=== PATIENT | female | born 1995 | race Caucasian/White ===

== ENCOUNTER → 2017-09-30 | Outpatient (CLI) | payer BC | LOC: M WUC 15:54 | DX: M54.2 Cervicalgia (principal) | CPT/HCPCS: 72052 ==

== ENCOUNTER → 2017-11-07 | Outpatient (CLI) | payer BC | LOC: M RAD 09:43 | DX: G43.909 Migraine, unspecified, not intractable, without status migrainosus (principal) | CPT/HCPCS: 70551 ==

== ENCOUNTER → 2018-08-20 | Outpatient (CLI) | payer BC ==
[2018-08-20 16:05] LABS: BASO # 0.1 10^3/uL (0.0-0.2); BASO % 0.6 % (0.0-1.0); EOS # 0.3 10^3/uL (0.0-0.50); EOS % 3.2 % (0.0-3.0); HEMATOCRIT 40.8 % (36.0-47.0); HEMOGLOBIN 13.3 g/dl (12.0-15.5); LYMPH # 1.9 10^3/uL (1.5-6.5); MEAN CORPUSCULAR HEMOGLOBIN 26.9 pg (27.0-33.0); MEAN CORPUSCULAR HGB CONC 32.6 g/dl (32.0-36.5); MEAN CORPUSCULAR VOLUME 82.6 fl (80.0-96.0); MONO # 0.5 10^3/uL (0.0-0.8); MONO % 5.3 % (0.0-5.0); NEUTROPHILS % 68.7 % (36.0-66.0); PLATELET COUNT, AUTOMATED 330 10^3/uL (150-450); RED BLOOD COUNT 4.94 10^6/uL (4.00-5.40); WHITE BLOOD COUNT 8.7 10^3/uL (4.0-10.0)
[2018-08-20 16:14] LABS: HEMATOCRIT 40.8 % (36.0-47.0)
[2018-08-20 16:26] LABS: ALBUMIN 4.1 GM/DL (3.2-5.2); ALT/SGPT 28 U/L (12-78); BILIRUBIN,TOTAL 0.4 MG/DL (0.2-1.0); BLOOD UREA NITROGEN 10 MG/DL (7-18); CALCIUM LEVEL 9.6 MG/DL (8.5-10.1); CARBON DIOXIDE LEVEL 23 MEQ/L (21-32); CHLORIDE LEVEL 109 MEQ/L (98-107); CREATININE FOR GFR 0.94 MG/DL (0.55-1.30); FREE T3 2.8 PG/ML (2.2-4.0); FREE T4 0.88 NG/DL (0.76-1.46); GLOMERULAR FILTRATION RATE > 60.0 (>60); GLUCOSE, FASTING 120 MG/DL (70-100); IRON (FE) 76 UG/DL (50-170); PERCENT SATURATION 21.1 % (13.2-45.0); POTASSIUM SERUM 3.9 MEQ/L (3.5-5.1); SODIUM LEVEL 139 MEQ/L (136-145); TOTAL IRON BINDING CAPACITY 360 UG/DL (250-450); TOTAL PROTEIN 7.2 GM/DL (6.4-8.2)
[2018-08-20 17:59] LABS: TOTAL 25(OH) VITAMIN D 19.2 NG/ML (30.0-100.0)
[2018-08-21 09:04] LABS: THYROID PEROXIDASE ANTIBODY 40.7 U/ML (<60.0)
[2018-08-21 09:17] LABS: THYROGLOBULIN ANTIBODY < 15.0 U/ML (<60.0)
[2018-08-27 00:07] LABS: ALUMINUM LEVEL 7 ug/L (0-9); ANTINUCLEAR ANTIBODIES DIRECT Negative (Negative); ARSENIC 3 ug/L (2-23); EBV VIRAL CAPSID AG IgM <36.0 U/mL (0.0-35.9); GLUTATHIONE QT 178 ug/mL (176-323); LEAD BLOOD ADULT <1 ug/dL (0-4); Lyme Disease IgG/IgM Antibodie <0.91 ISR (0.00-0.90); Lyme Disease IgM Ab Quantitati <0.80 index (0.00-0.79); MERCURY LEVEL None Detected ug/L (0.0-14.9); T3 REVERSE 21.9 ng/dL (9.2-24.1)
== END ==
LOC: M WUC 13:34
PROVIDERS: ATTEND Nurse Practitioner Pediatrics
DX: F32.0 Major depressive disorder, single episode, mild (principal)

== ENCOUNTER → 2018-11-12 | Outpatient (CLI) | payer BC ==
[2018-11-12 18:20] LABS: IMMUNOGLOBULIN E 47.8 IU/ML (<100); IMMUNOGLOBULIN M 22.9 MG/DL (40-230)
[2018-11-18 08:06] LABS: ALPHA 1 ANTITRYPSIN 194 mg/dL (90-200); D001-IgE D pteronyssinus 0.46 kU/L (Class I); E001-IgE Cat Epith/Dander 9.35 kU/L (Class IV); F002-IgE Milk 0.12 kU/L (Class 0/I); F004-IgE Wheat < 0.10 kU/L (Class 0); F013-IgE Peanut 0.13 kU/L (Class 0/I); F014-IgE Soybean < 0.10 kU/L (Class 0); F026-IgE Pork < 0.10 kU/L (Class 0); F027-IgE Beef < 0.10 kU/L (Class 0); F245-IgE Egg, Whole < 0.10 kU/L (Class 0); FX02-IgE Food Mix (Sea Foods) Negative (.); G002-IgE Bermuda Grass < 0.10 kU/L (Class 0); G008-IgE Kentucky Bluegrass 0.91 kU/L (Class II); M001-IgE Penicillium chrysogen < 0.10 kU/L (Class 0); M002 IgE Cladosporium herbaru < 0.10 kU/L (Class 0); M003 IgE Aspergillus fumigatu < 0.10 kU/L (Class 0); M006-IgE Alternaria alternata < 0.10 kU/L (Class 0); T001-IgE Maple/Box Elder 0.17 kU/L (Class 0/I); T006-IgE Cedar, Mountain 0.64 kU/L (Class II); T007-IgE Oak, White 0.55 kU/L (Class I); T008-IgE Elm, American 0.67 kU/L (Class II); T015-IgE Ash, White 0.15 kU/L (Class 0/I); T041-IgE Hickory, White 0.75 kU/L (Class II); T070-IgE White Mulberry < 0.10 kU/L (Class 0); W001-IgE Ragweed, Short 0.17 kU/L (Class 0/I); W009-IgE Plantain, English < 0.10 kU/L (Class 0); W014-IgE Pigweed, Rough < 0.10 kU/L (Class 0); W018-IgE Sheep Sorrel < 0.10 kU/L (Class 0)
== END ==
LOC: M WUC 14:30
PROVIDERS: ATTEND Nurse Practitioner Family
DX: J30.1 Allergic rhinitis due to pollen (principal); J30.81 Allergic rhinitis due to animal (cat) (dog) hair and dander; J30.89 Other allergic rhinitis

== ENCOUNTER → 2020-01-02 | Outpatient (CLI) | payer BC ==
[~2020-01-02] MED LIST: ASHL1TAB PO; CBD TOP; DICL1GEL3 TOP; MIRA3350 PO; MONT10TA4; OMEP40CA97 PO; SING10TA32 PO; SYMB16INH INH; VENTAER INH; xyzal PO
== END ==
LOC: M LABSMTC 09:24
PROVIDERS: ATTEND Anesthesiology
DX: Z01.812 Encounter for preprocedural laboratory examination (principal); Z20.828 Contact with and (suspected) exposure to other viral communicable diseases
CPT/HCPCS: C9803; U0003

== ENCOUNTER 2020-01-07 10:55 | Day surgery (SDC) | payer BC ==
[~2020-01-07] VITALS: Ht 152.4 cm; Wt 78.4 kg
[~2020-01-07 10:55] MED LIST changes: -MONT10TA4; +NS 1,000 ML IV ONE
[2020-01-07] MEDS ORDERED: propofoL 200 MG/20 ML VIAL As Ordered ONE ×3 (12:05→13:05)
[2020-01-07] MEDS ORDERED: LIDOCAINE 2% 100MG/5ML SDV (FOR ANES.) As Ordered ONE (12:05)
[2020-01-07] MEDS ORDERED: fentaNYL 100 MCG/2 ML INJECTION (J3010) As Ordered ONE (12:05)
--- NOTE | 2020-01-07 12:47 | ROOR ---
Patient Name: Shahrzad Zeng Procedure Date: 01/07/2020 12:24 PM Date of : 1995 Age: 24 Room: [facility] Gender: Female Note Status: Finalized Procedure: Upper GI endoscopy Indications: Heartburn Providers: Landon Duval MD Referring MD: TATO SMART MD Requesting Provider: Medicines: Monitored Anesthesia Care Complications: No immediate complications. Procedure: Pre-Anesthesia Assessment: - Prior to the procedure, a History and Physical was performed, and patient medications and allergies were reviewed. The patient is competent. The risks and benefits of the procedure and the sedation options and risks were discussed with the patient. All questions were answered and informed consent was obtained. Patient identification and proposed procedure were verified by the physician, the nurse and the anesthesiologist in the pre-procedure area. Mental Status Examination: alert and oriented. Airway Examination: normal oropharyngeal airway and neck mobility. Respiratory Examination: clear to auscultation. CV Examination: normal. Prophylactic Antibiotics: The patient does not require prophylactic antibiotics. Prior Anticoagulants: The patient has taken no previous anticoagulant or antiplatelet agents. ASA Grade Assessment: II - A patient with mild systemic disease. After reviewing the risks and benefits, the patient was deemed in satisfactory condition to undergo the procedure. The anesthesia plan was to use monitored anesthesia care (MAC). Immediately prior to administration of medications, the patient was re-assessed for adequacy to receive sedatives. The heart rate, respiratory rate, oxygen saturations, blood pressure, adequacy of pulmonary ventilation, and response to care were monitored throughout the procedure. The physical status of the patient was re-assessed after the procedure. The Endoscope was introduced through the mouth, and advanced to the second part of duodenum. The upper GI endoscopy was accomplished without difficulty. The patient tolerated the procedure well. Findings: The Z-line was regular and was found 36 cm from the incisors. The examined esophagus was normal. Scattered mild inflammation characterized by erythema, friability and granularity was found in the gastric antrum. Biopsies were taken with a cold forceps for Helicobacter pylori testing. Verification of patient identification for the specimen was done by the physician and nurse using the patient's name, date and medical record number. Estimated blood loss was minimal. The duodenal bulb and second portion of the duodenum were normal. Impression: - Z-line regular, 36 cm from the incisors. - Normal esophagus. - Gastritis. Biopsied. - Normal duodenal bulb and second portion of the duodenum. Recommendation: - Patient has a contact number available for emergencies. The signs and symptoms of potential delayed complications were discussed with the patient. Return to normal activities tomorrow. Written discharge instructions were provided to the patient. - High fiber diet. - Continue present medications. - Await pathology results. - Follow an antireflux regimen. - Telephone GI clinic for pathology results in 2 weeks. - If persistent Acid reflux symptoms, consider elective Ambulatory Ph testing. - Return to primary care physician. Landon Duval MD Landon Duval MD 01/07/2020 12:46:10 PM Electronically signed by Landon Duval MD Number of Addenda: 0 Note Initiated On: 01/07/2020 12:24 PM Estimated Blood Loss: Estimated blood loss was minimal.
[2020-01-07 13:02] VITALS: BP 130/75
== END 2020-01-07 13:03 | disposition home or self-care (01) ==
LOC: M OPP 10:55
PROVIDERS: ATTEND Internal Medicine Gastroenterology
DX: K29.70 Gastritis, unspecified, without bleeding (principal); R12 Heartburn; J45.909 Unspecified asthma, uncomplicated; Z79.899 Other long term (current) drug therapy
CPT/HCPCS: 43239; 88305; J3010

== ENCOUNTER 2020-01-10 17:27 | Emergency (ER) | payer BC ==
[~2020-01-10] VITALS: Ht 152.4 cm; Wt 77.4 kg
[2020-01-10 17:27] VITALS: BP 128/76
[~2020-01-10 17:27] MED LIST changes: -NS 1,000 ML IV ONE
[2020-01-10] MEDS ORDERED: MONT10TA4 (17:36)
[2020-01-10 18:25] LABS: HEMATOCRIT 41.3 % (36.0-47.0); HEMOGLOBIN 13.3 g/dl (12.0-15.5); MEAN CORPUSCULAR HEMOGLOBIN 26.6 pg (27.0-33.0); MEAN CORPUSCULAR HGB CONC 32.2 g/dl (32.0-36.5); MEAN CORPUSCULAR VOLUME 82.6 fl (80.0-96.0); PLATELET COUNT, AUTOMATED 366 10^3/uL (150-450); WHITE BLOOD COUNT 10.4 10^3/uL (4.0-10.0)
[2020-01-10 18:57] LABS: HCG, SERUM QUALITATIVE NEGATIVE (NEGATIVE)
[2020-01-10 19:05] LABS: BLOOD UREA NITROGEN 8 MG/DL (7-18); CALCIUM LEVEL 9.9 MG/DL (8.5-10.1); CARBON DIOXIDE LEVEL 29 MEQ/L (21-32); CHLORIDE LEVEL 109 MEQ/L (98-107); CREATININE FOR GFR 0.96 MG/DL (0.55-1.30); FREE THYROXINE INDEX 3.7 % (1.3-4.8); GLOMERULAR FILTRATION RATE > 60.0 (>60); GLUCOSE, FASTING 106 MG/DL (70-100); POTASSIUM SERUM 3.9 MEQ/L (3.5-5.1); SODIUM LEVEL 141 MEQ/L (136-145); T UPTAKE 28 % (30-39); THYROXINE (T4) 13.2 UG/DL (4.5-12.0)
[2020-01-10] MEDS ORDERED: NAPROXEN 250 MG TAB PO ONE (21:00)
== END 2020-01-10 21:39 | disposition left against medical advice (07) ==
LOC: M ED 17:27
DX: R00.2 Palpitations (principal); Z53.9 Procedure and treatment not carried out, unspecified reason; J45.909 Unspecified asthma, uncomplicated; Z79.3 Long term (current) use of hormonal contraceptives; Z79.899 Other long term (current) drug therapy; J30.89 Other allergic rhinitis

== ENCOUNTER → 2020-05-29 | Outpatient (CLI) | payer BC ==
[~2020-05-29] MED LIST changes: +MONT10TA10
--- NOTE | 2020-05-29 08:34 | REP ---
INDICATION: COUGH 1ST XR 2ND LAB 3RD. COMPARISON: None TECHNIQUE: Two views FINDINGS: The lung nieto are well inflated. CP angles are sharply defined. There is no pleural thickening, effusion, apical scarring or pneumothorax. No dense consolidation or parenchymal nodules. Heart, mediastinal and hilar contours are normal. The aorta and airway are intact. Bones are unremarkable. No free air under the diaphragm. IMPRESSION: No acute cardiopulmonary change. <Electronically signed by Mati Orlando > 05/29/20 0822
[2020-05-29 08:37] LABS: BASO % 0.4 % (0.0-1.0); EOS # 0.1 10^3/uL (0.0-0.5); HEMATOCRIT 40.4 % (36.0-47.0); HEMOGLOBIN 12.9 g/dl (12.0-15.5); LYMPH # 2.5 10^3/uL (1.5-5.0); LYMPH % 26.3 % (24.0-44.0); MEAN CORPUSCULAR HEMOGLOBIN 26.2 pg (27.0-33.0); MEAN CORPUSCULAR HGB CONC 31.9 g/dl (32.0-36.5); MEAN CORPUSCULAR VOLUME 81.9 fl (80.0-96.0); MONO # 0.4 10^3/uL (0.0-0.8); MONO % 4.6 % (2.0-8.0); NEUTROPHILS # 6.4 10^3/uL (1.5-8.5); NEUTROPHILS % 67.5 % (36.0-66.0); PLATELET COUNT, AUTOMATED 352 10^3/uL (150-450); RED BLOOD COUNT 4.93 10^6/uL (4.00-5.40); WHITE BLOOD COUNT 9.5 10^3/uL (4.0-10.0)
--- NOTE | 2020-05-29 08:44 | REP ---
INDICATION: RUQ ABD PAIN US 1ST XR 2ND LAB 3RD. COMPARISON: None. TECHNIQUE: Standard right upper quadrant sonography FINDINGS: The liver is homogeneous in echotexture without focal hepatic mass, intrahepatic biliary dilatation or perihepatic ascites. The gallbladder is without stone, sludge, wall thickening or pericholecystic fluid. Common duct is 3.6 mm and unremarkable. No sonographic Santiago sign is recorded. Visualized pancreas was unremarkable. Right kidney is 9.6 x 6 x 4.4 cm without hydronephrosis other focal abnormality. IMPRESSION: Negative right upper quadrant ultrasound for any acute finding. <Electronically signed by Mati Orlando > 05/29/20 [id number]
[2020-05-29 09:01] LABS: ALBUMIN 3.7 GM/DL (3.2-5.2); ALT/SGPT 33 U/L (12-78); AMYLASE 61 U/L (25-115); BILIRUBIN,TOTAL 0.4 MG/DL (0.2-1.0); BLOOD UREA NITROGEN 11 MG/DL (7-18); CALCIUM LEVEL 9.2 MG/DL (8.5-10.1); CARBON DIOXIDE LEVEL 24 MEQ/L (21-32); CHLORIDE LEVEL 106 MEQ/L (98-107); CREATININE FOR GFR 1.01 MG/DL (0.55-1.30); FREE T4 0.92 NG/DL (0.76-1.46); GLOMERULAR FILTRATION RATE > 60.0 (>60); GLUCOSE, FASTING 90 MG/DL (70-100); LIPASE 230 U/L (73-393); POTASSIUM SERUM 3.9 MEQ/L (3.5-5.1); SODIUM LEVEL 140 MEQ/L (136-145); TOTAL PROTEIN 7.1 GM/DL (6.4-8.2)
== END ==
LOC: M LAB 07:09
PROVIDERS: ATTEND Physician Assistant
DX: R10.11 Right upper quadrant pain (principal)

== ENCOUNTER → 2020-06-19 | Outpatient (CLI) | payer BC ==
--- NOTE | 2020-06-19 10:29 | REP ---
INDICATION: RUQ PAIN. COMPARISON: Comparison sonography May 29, 2020.. TECHNIQUE/RADIOTRACER AND DOSE: 6.6 mCi of Technetium-99m mebrofenin was injected and sequential anterior images are acquired. 65 minutes after the mebrofenin injection, the patient consumed 8 ounces Ensure and an additional 60 minutes of imaging was acquired. Regions of interest are plotted around the gallbladder. FINDINGS: The initial hepatocellular parenchymal uptake phase is normal and homogeneous. Intra- and extra-hepatic bile ducts are labeled by the next 10-minute image. The gallbladder is first labeled on the 10-minute image. There is normal washout from the liver parenchyma into the gallbladder and small intestine on subsequent images. The gallbladder ejection fraction is 82%. Values greater than 35% are considered normal with this technique. IMPRESSION: Normal hepatobiliary scan and normal gallbladder ejection fraction. <Electronically signed by Marcellus Garner > 06/19/20 1026
== END ==
LOC: M RAD 07:28
PROVIDERS: ATTEND Physician Assistant
DX: R10.11 Right upper quadrant pain (principal)
CPT/HCPCS: 78227; A9537

== ENCOUNTER → 2020-07-06 | Outpatient (CLI) | payer BC ==
[~2020-07-06] MED LIST changes: +GASTROGRAFIN SOLUTION 30ML (Q9963) As Ordered ONE; +ISOVUE-370 76% 100ML VIAL As Ordered ONE
--- NOTE | 2020-07-07 03:46 | REP ---
INDICATION: TRAMATIC INJURY ? DIAPHRAMATIC HERNIA. COMPARISON: None TECHNIQUE: Axial contrast-enhanced images from the lung bases to the pubic symphysis using oral 100 cc Isovue 370 intravenous contrast material. Coronal and sagittal reformations obtained. This CT examination was performed using the following dose reduction techniques: Automated exposure control, adjustment of mA and/or kv according to the patient's size, and the use of iterative reconstruction technique. FINDINGS: Lung bases are clear. Visualized heart and pericardium. Coronal images demonstrate normal appearance of bilateral diaphragms. Liver, spleen, pancreas, gallbladder, bilateral adrenal glands and kidneys are normal. The enteric system including stomach, small, and large bowel appears normal. No evidence for obstruction or acute inflammatory process. Normal terminal ileum and appendix are identified in the right lower quadrant. Pelvis demonstrates normal bladder and age-appropriate uterus/adnexa. No ascites. No free air. No intraperitoneal or retroperitoneal adenopathy. Abdominal aorta and vasculature appear normal. Skeletal structures are relatively normal. Incidentally noted is a chronic left L5 pars defect without associated subluxation. IMPRESSION: No acute abdominopelvic pathology appreciated. Nonacute stable left L5 pars defect. <Electronically signed by Santos Kiser > 07/07/20 [id number]
== END ==
LOC: M RAD 14:09
PROVIDERS: ATTEND Internal Medicine
DX: K44.9 Diaphragmatic hernia without obstruction or gangrene (principal)
CPT/HCPCS: 74177; Q9963; Q9967

== ENCOUNTER → 2020-08-07 | Outpatient (CLI) | payer BC ==
[~2020-08-07] MED LIST changes: -GASTROGRAFIN SOLUTION 30ML (Q9963) As Ordered ONE; -ISOVUE-370 76% 100ML VIAL As Ordered ONE
--- NOTE | 2020-08-07 11:19 | REP ---
INDICATION: GANGLION, LEFT WRIST COMPARISON: None. TECHNIQUE: AP, lateral, bilateral oblique views left wrist. FINDINGS: The carpal bones, surrounding osseous structures, soft tissues, and joint spaces are normal. There is no evidence for acute fracture or dislocation. No subcutaneous emphysema or radiodense foreign body. IMPRESSION: Normal wrist series. No obvious soft tissue deformity identified. <Electronically signed by Santos Kiser > 08/07/20 1371
== END ==
LOC: M RAD 10:55
PROVIDERS: ATTEND Physician Assistant
DX: R29.898 Other symptoms and signs involving the musculoskeletal system (principal)

== ENCOUNTER → 2020-08-21 | Outpatient (CLI) | payer BC ==
--- NOTE | 2020-08-21 14:57 | REP ---
INDICATION: SWELLING COMPARISON: None. TECHNIQUE: Four views left ankle. FINDINGS: There is no evidence of acute fracture, dislocation, or intrinsic bone disease.The ankle mortise is anatomic. IMPRESSION: Negative left ankle series. <Electronically signed by Kalpesh Parsons > 08/21/20 [id number]
== END ==
LOC: M WUC 14:40
PROVIDERS: ATTEND Physician Assistant Medical
DX: R22.42 Localized swelling, mass and lump, left lower limb (principal)

== ENCOUNTER → 2020-09-11 | Outpatient (CLI) | payer OTHER ==
--- NOTE | 2020-09-11 11:31 | REP ---
INDICATION: PAIN IN UNSPECIFIED SHOULDER COMPARISON: None. TECHNIQUE: Internal rotation, external rotation, and Y view right and left shoulder. FINDINGS: No acute fracture or dislocation. The acromioclavicular and glenohumeral joints are intact. No periarticular calcifications or degenerative changes are appreciated. Sub acromial space is normal. Surrounding soft tissues are unremarkable. Evidence for prior left humerus fracture with orthopedic hardware in satisfactory position. IMPRESSION: Normal bilateral shoulder radiographs. Evidence for prior left humerus fracture with orthopedic hardware in satisfactory position. <Electronically signed by Santos Kiser > 09/11/20 [id number]
== END ==
LOC: M RAD 10:57
PROVIDERS: ATTEND Physician Assistant
DX: M25.511 Pain in right shoulder (principal); M25.512 Pain in left shoulder; Z87.81 Personal history of (healed) traumatic fracture

== ENCOUNTER → 2020-09-11 | Outpatient (CLI) | payer BC ==
[~2020-09-11] MED LIST changes: +METHACHOLINE KIT (J7674) INH ONE
--- NOTE | 2020-09-11 10:48 | PFTRPT ---
Height: 60.00 Inches Weight: 175.00 Lbs BSA: 1.76 Diagnosis: R05 DATE: 09/11/2020 ORDERED BY: Dr. Harris QUALITY: Study of excellent technical quality. PROCEDURE: Under protocol, methacholine was administered. At a dose of 2.5 mg or 13.875 CDUs, a 26% decline in the FEV1 was noted. PC of 0.87 is significant. Flow rates did return to baseline post bronchodilator administration. IMPRESSION: Positive methacholine challenge study. MTDD
== END ==
LOC: M CARPUL 10:50
PROVIDERS: ATTEND Allergy & Immunology Allergy
DX: R05 Cough (principal)
CPT/HCPCS: 94070; J7674

== ENCOUNTER 2020-10-11 20:21 | Emergency (ER) | payer OTHER ==
[~2020-10-11] VITALS: Ht 152.4 cm; Wt 78.2 kg
[~2020-10-11 20:21] MED LIST changes: -METHACHOLINE KIT (J7674) INH ONE; +OMEP40CA4 PO; -OMEP40CA97 PO
[2020-10-11 20:22] VITALS: BP 143/90
[2020-10-11] MEDS ORDERED: PRED20TA PO (20:34)
[2020-10-11] MEDS ORDERED: BENA25CA4 PO (20:34)
== END 2020-10-11 21:27 | disposition left against medical advice (07) ==
LOC: M ED 20:21
DX: Z53.21 Procedure and treatment not carried out due to patient leaving prior to being seen by health care provider (principal)

== ENCOUNTER → 2020-10-16 | Outpatient (CLI) | payer BC ==
[~2020-10-16] MED LIST changes: +BENA25CA4 PO; +PRED20TA PO
== END ==
LOC: M WUC 11:09
PROVIDERS: ATTEND Allergy & Immunology Allergy
DX: T78.03XA Anaphylactic reaction due to other fish, initial encounter (principal)

== ENCOUNTER 2020-12-27 10:58 | Emergency (ER) | payer BC ==
[~2020-12-27] VITALS: Ht 152.4 cm; Wt 81.8 kg
[2020-12-27] MEDS ORDERED: LEXA1TAB (13:15)
[2020-12-27] MEDS ORDERED: NS 1,000 ML IV ONE (13:30)
[2020-12-27 14:08] LABS: BASO % 0.4 % (0.0-1.0); EOS % 0.4 % (0.0-3.0); HEMATOCRIT 40.2 % (36.0-47.0); HEMOGLOBIN 12.7 g/dl (12.0-15.5); LYMPH # 1.9 10^3/uL (1.5-5.0); LYMPH % 21.2 % (24.0-44.0); MEAN CORPUSCULAR HEMOGLOBIN 25.6 pg (27.0-33.0); MEAN CORPUSCULAR HGB CONC 31.6 g/dl (32.0-36.5); MONO # 0.4 10^3/uL (0.0-0.8); MONO % 4.4 % (2.0-8.0); NEUTROPHILS # 6.6 10^3/uL (1.5-8.5); NEUTROPHILS % 73.2 % (36.0-66.0); PLATELET COUNT, AUTOMATED 334 10^3/uL (150-450); RED BLOOD COUNT 4.96 10^6/uL (4.00-5.40); WHITE BLOOD COUNT 9.1 10^3/uL (4.0-10.0)
[2020-12-27 14:48] LABS: BLOOD UREA NITROGEN 9 MG/DL (7-18); CALCIUM LEVEL 9.5 MG/DL (8.5-10.1); CARBON DIOXIDE LEVEL 26 MEQ/L (21-32); CHLORIDE LEVEL 108 MEQ/L (98-107); CK-MB VALUE MASS < 1.0 NG/ML (<3.6); CPK CREATINE PHOSPHOKINASE 118 U/L (26-192); CREATININE FOR GFR 0.92 MG/DL (0.55-1.30); FREE THYROXINE INDEX 2.5 % (1.3-4.8); GLOMERULAR FILTRATION RATE > 60.0 (>60); GLUCOSE, FASTING 93 MG/DL (70-100); MB/CK RELATIVE INDEX 0.85 (< OR =4); POTASSIUM SERUM 3.9 MEQ/L (3.5-5.1); SODIUM LEVEL 142 MEQ/L (136-145); T UPTAKE 35 % (30-39); THYROXINE (T4) 7.2 UG/DL (4.5-12.0); TROPONIN I < 0.02 NG/ML (< 0.10)
[2020-12-27 14:49] LABS: HCG, SERUM QUALITATIVE NEGATIVE (NEGATIVE)
[2020-12-27 15:30] VITALS: BP 134/79
== END 2020-12-27 15:54 | disposition home or self-care (01) ==
LOC: M ED 10:58
DX: R42 Dizziness and giddiness (principal); R07.89 Other chest pain; R20.2 Paresthesia of skin; J45.909 Unspecified asthma, uncomplicated; Z79.899 Other long term (current) drug therapy; Z91.013 Allergy to seafood

== ENCOUNTER → 2021-01-03 | Outpatient (CLI) | payer BC ==
[~2021-01-03] MED LIST changes: +LEXA1TAB
--- NOTE | 2021-01-03 11:41 | REP ---
INDICATION: Bilateral whole breast pain no focal abnormality. COMPARISON: None TECHNIQUE: Whole breast ultrasonography was performed bilaterally using anatomical intelligence and shear wave elastography if necessary. FINDINGS: No cystic or solid masses are seen in either breast. IMPRESSION: ACR category 2 benign bilateral whole breast ultrasound as described above. Negative ultrasound should never curtail biopsy of a clinically palpable mass or clinically suspicious area the breast. <Electronically signed by Johnson Alvarez > 01/03/21 0476
== END ==
LOC: M WHC 10:08
PROVIDERS: ATTEND Physician Assistant Medical
DX: N64.4 Mastodynia (principal)

== ENCOUNTER → 2021-09-06 | Outpatient (CLI) | payer BC ==
[~2021-09-06] MED LIST changes: -MONT10TA10; +MONT10TA97
[2021-09-06 12:31] LABS: HEMATOCRIT 37.1 % (36.0-47.0); HEMOGLOBIN 11.5 g/dl (12.0-15.5); MEAN CORPUSCULAR HEMOGLOBIN 23.9 pg (27.0-33.0); PLATELET COUNT, AUTOMATED 327 10^3/uL (150-450); RED BLOOD COUNT 4.82 10^6/uL (4.00-5.40)
[2021-09-06 12:58] LABS: BLOOD UREA NITROGEN 10 MG/DL (7-18); CREATININE FOR GFR 0.95 MG/DL (0.55-1.30); GLOMERULAR FILTRATION RATE > 60.0 (>60); GLUCOSE, FASTING 86 MG/DL (70-100); POTASSIUM SERUM 4.1 MEQ/L (3.5-5.1); SODIUM LEVEL 141 MEQ/L (136-145)
[2021-09-06 12:59] LABS: CALCIUM LEVEL 10.2 MG/DL (8.5-10.1); CARBON DIOXIDE LEVEL 29 MEQ/L (21-32); CHLORIDE LEVEL 106 MEQ/L (98-107); FREE T4 0.79 NG/DL (0.76-1.46); MAGNESIUM LEVEL 2.3 MG/DL (1.8-2.4)
== END ==
LOC: M WUC 10:31
PROVIDERS: ATTEND Physician Assistant
DX: R00.2 Palpitations (principal)

== ENCOUNTER → 2021-09-06 | Outpatient (CLI) | payer BC | LOC: M WUC 10:28 | PROVIDERS: ATTEND Nurse Practitioner Family | DX: R53.83 Other fatigue (principal) ==

== ENCOUNTER 2021-10-09 14:30 | Emergency (ER) | payer BC ==
[~2021-10-09] VITALS: Ht 152.4 cm; Wt 90.9 kg
[2021-10-09] MEDS ORDERED: FAMOTIDINE 20MG/2ML VIAL IVP ONE (15:05)
[2021-10-09 16:27] VITALS: BP 122/70
[2021-10-09] MEDS ORDERED: FAMO20TA PO (17:21)
[2021-10-09] MEDS ORDERED: PRED20TA PO (17:21)
== END 2021-10-09 17:34 | disposition home or self-care (01) ==
LOC: M ED 14:30 → EDBD 14:30 → M ED 17:34
DX: T78.40XA Allergy, unspecified, initial encounter (principal); R21 Rash and other nonspecific skin eruption; J45.909 Unspecified asthma, uncomplicated; J30.89 Other allergic rhinitis; Z79.899 Other long term (current) drug therapy; Z91.013 Allergy to seafood

== ENCOUNTER → 2021-11-05 | Outpatient (CLI) | payer BC ==
[~2021-11-05] MED LIST changes: +FAMO20TA PO
== END ==
LOC: M WUC 13:34
PROVIDERS: ATTEND Allergy & Immunology Allergy
DX: T78.1XXD Other adverse food reactions, not elsewhere classified, subsequent encounter (principal)

== ENCOUNTER → 2022-02-19 | Outpatient (REF) | payer BC | LOC: M LAB REF 12:39 | PROVIDERS: ATTEND Physician Assistant | DX: J35.01 Chronic tonsillitis (principal) ==

== ENCOUNTER → 2022-05-14 | Outpatient (REF) | payer BC | LOC: M LAB REF 16:44 | PROVIDERS: ATTEND Nurse Practitioner Adult Health | DX: J02.9 Acute pharyngitis, unspecified (principal) ==

== ENCOUNTER → 2022-06-03 | Outpatient (CLI) | payer BC ==
[~2022-06-03] MED LIST changes: +MONT-5 PO; -SING10TA32 PO
== END ==
LOC: M SLEEP HO 11:30
PROVIDERS: ATTEND Internal Medicine Pulmonary Disease
DX: R06.83 Snoring (principal)

== ENCOUNTER → 2022-08-13 | Outpatient (REF) | payer BC | LOC: M LAB REF 17:45 | PROVIDERS: ATTEND Nurse Practitioner Adult Health | DX: B37.9 Candidiasis, unspecified (principal); B30.0 Keratoconjunctivitis due to adenovirus ==

== ENCOUNTER → 2022-08-14 | Outpatient (CLI) | payer BC ==
[2022-08-14 13:10] LABS: HEMATOCRIT 35.6 % (36.0-47.0); HEMOGLOBIN 11.3 g/dl (12.0-15.5); MEAN CORPUSCULAR HEMOGLOBIN 24.6 pg (27.0-33.0); MEAN CORPUSCULAR HGB CONC 31.7 g/dl (32.0-36.5); MEAN CORPUSCULAR VOLUME 77.6 fl (80.0-96.0); PLATELET COUNT, AUTOMATED 244 10^3/uL (150-450); RED BLOOD COUNT 4.59 10^6/uL (4.00-5.40); WHITE BLOOD COUNT 5.3 10^3/uL (4.0-10.0)
[2022-08-14 13:21] LABS: ALBUMIN 3.7 G/DL (3.2-5.2); ALKALINE PHOSPHATASE 92 U/L (46-116); ALT/SGPT 27 U/L (7.0-40); AST/SGOT 24 U/L (<34); BILIRUBIN,TOTAL 0.4 MG/DL (0.3-1.2); BLOOD UREA NITROGEN 7 MG/DL (9-23); CALCIUM LEVEL 8.9 MG/DL (8.5-10.1); CARBON DIOXIDE LEVEL 26 MMOL/L (20-31); CHLORIDE LEVEL 105 MMOL/L (98-107); CREATININE FOR GFR 0.88 MG/DL (0.55-1.30); GLOMERULAR FILTRATION RATE > 60.0 (>60); GLUCOSE, FASTING 83 MG/DL (60-100); POTASSIUM SERUM 3.7 MMOL/L (3.5-5.1); SODIUM LEVEL 138 MMOL/L (136-145); TOTAL PROTEIN 6.6 G/DL (5.7-8.2)
[2022-08-14 13:35] LABS: ANISOCYTOSIS 2+; ATYPICAL LYMPH 11 % (0-5); BASOPHILS 1 % (0-1); GIANT PLATELETS 1+; HYPOCHROMASIA 1+; LYMPHOCYTES 24 % (16-44); MICROCYTOSIS 1+; MONOCYTES 9 % (0-5); NEUTROPHILS 55 % (28-66); PLATELET ESTIMATE NORMAL (NORMAL)
[2022-08-14 13:47] LABS: ERYTHROCYTE SEDIMENTATION RATE 41 mm/hr (0-20)
== END ==
LOC: M WUC 09:11
PROVIDERS: ATTEND Family Medicine
DX: R50.9 Fever, unspecified (principal)

== ENCOUNTER → 2022-09-19 | Outpatient (REF) | payer BC | LOC: M LAB REF 16:47 | PROVIDERS: ATTEND Nurse Practitioner Adult Health | DX: N89.8 Other specified noninflammatory disorders of vagina (principal) ==

== ENCOUNTER → 2022-10-31 | Outpatient (REF) | payer BC | LOC: M LAB REF 16:55 | PROVIDERS: ATTEND Nurse Practitioner Adult Health | DX: R30.0 Dysuria (principal); N89.8 Other specified noninflammatory disorders of vagina ==

== ENCOUNTER → 2023-03-14 | Outpatient (REF) | payer BC ==
[~2023-03-14] MED LIST changes: +DICL100G10 TOP; -DICL1GEL3 TOP
== END ==
LOC: M LAB REF 13:29
PROVIDERS: ATTEND Family Medicine
DX: N76.0 Acute vaginitis (principal); R30.0 Dysuria

== ENCOUNTER → 2023-04-11 | Outpatient (CLI) | payer OTHER ==
[2023-04-11 17:00] LABS: BASO # 0.1 10^3/uL (0.0-0.2); BASO % 0.6 % (0.0-1.0); EOS # 0.1 10^3/uL (0.0-0.5); EOS % 1.4 % (0.0-3.0); HEMOGLOBIN 11.5 g/dl (12.0-15.5); LYMPH % 24.6 % (24.0-44.0); MEAN CORPUSCULAR HEMOGLOBIN 24.4 pg (27.0-33.0); MEAN CORPUSCULAR HGB CONC 31.1 g/dl (32.0-36.5); MEAN CORPUSCULAR VOLUME 78.6 fl (80.0-96.0); MONO # 0.5 10^3/uL (0.0-0.8); MONO % 5.7 % (2.0-8.0); NEUTROPHILS # 5.4 10^3/uL (1.5-8.5); NEUTROPHILS % 67.5 % (36.0-66.0); PLATELET COUNT, AUTOMATED 299 10^3/uL (150-450); RED BLOOD COUNT 4.71 10^6/uL (4.00-5.40)
[2023-04-11 17:20] LABS: PERCENT SATURATION 10.3 % (13.2-45.0)
[2023-04-11 17:22] LABS: TOTAL 25(OH) VITAMIN D 27.5 NG/ML (20.0-100.0)
== END ==
LOC: M WUC 11:22
PROVIDERS: ATTEND Nurse Practitioner Adult Health
DX: D50.9 Iron deficiency anemia, unspecified (principal)

== ENCOUNTER 2023-04-28 07:23 | Outpatient (CLI) | payer OTHER ==
[~2023-04-28] VITALS: Ht 152.4 cm; Wt 84.5 kg
[2023-04-28 07:50] VITALS: BP 139/84; O2SAT 99
[2023-04-28] MEDS ORDERED: IRON SUCROSE 500 MG in NS 250 ML OVER 4 HRS IV ONE (08:00)
[2023-04-28 09:20] VITALS: BP 133/82; O2SAT 100
[2023-04-28 10:31] VITALS: BP 131/79; O2SAT 99
[2023-04-28 11:20] VITALS: BP 146/75; O2SAT 100
[2023-04-28 12:50] VITALS: BP 118/70; O2SAT 98
== END 2023-04-28 12:50 | disposition home or self-care (01) ==
LOC: M INFU 07:23
PROVIDERS: ATTEND Nurse Practitioner Adult Health
DX: D50.9 Iron deficiency anemia, unspecified (principal); Z91.013 Allergy to seafood; Z91.048 Other nonmedicinal substance allergy status
CPT/HCPCS: 96365; 96366; J1756